=== PATIENT | female | born 1995 | race African-American/Black ===

== ENCOUNTER 2019-11-24 22:15 | Emergency (ER) | payer OTHER ==
[2019-11-25] MEDS ORDERED: Ketorolac INJ* 30 MG/ML 1 ML VIAL IM ONE (00:01)
[2019-11-25] MEDS ORDERED: oxyCODONE/Acetamin 5/325 MG* TAB PO ONE (00:15)
--- NOTE | 2019-11-25 00:17 | ED ---
Lower Extremity - HPI Summary HPI Summary: 24 year old female presents with left ankle pain today. She was playing basketball and when she plantar flexed her foot when she felt pain in her Achilles. She states that she felt a pop there. States that she felt immediate weakness. She states that she has not been able to walk normally and has only been able to place occasionally weight on her toes. She states she has history of Achilles tendinitis but this is much worse. She has no medical conditions. - History of Current Complaint Chief Complaint: EDExtremityLower Stated Complaint: L ANKLE PAIN PER PT Time Seen by Provider: 11/24/19 23:44 Pain Intensity: 8 - Allergies/Home Medications Allergies/Adverse Reactions: Allergies Allergy/AdvReac Type Severity Reaction Status Date / Time No Known Allergies Allergy Verified 11/24/19 22:19 Home Medications: Home Medications Norgestimate-Ethinyl Estradiol [Sprintec 28 Day Tablet] 1 tab PO DAILY 11/24/19 [History Confirmed 11/24/19] oxyCODONE/Acetamin 5/325 MG* [Percocet 5/325 TAB*] 1 tab PO Q6H PRN #8 tab MDD 4 11/25/19 [Rx] PMH/Surg Hx/FS Hx/Imm Hx Endocrine/Hematology History: Denies: Hx Anticoagulant Therapy Respiratory History: Denies: Hx Asthma Infectious Disease History: No Infectious Disease History: Denies: Traveled Outside the [place] in Last 30 Days - Family History Known Family History: Positive: Non-Contributory - Social History Alcohol Use: Occasionally Substance Use Type: Reports: Marijuana Substance Use Comment - Amount & Last Used: occassional Smoking Status (MU): Never Smoked Tobacco Review of Systems Negative: Fever Negative: Chest Pain Negative: Shortness Of Breath Positive: Myalgia - left ankle pain All Other Systems Reviewed And Are Negative: Yes Physical Exam Triage Information Reviewed: Yes Vital Signs On Initial Exam: Initial Vitals Temp Pulse Resp BP Pulse Ox 100.6 F 86 15 140/83 99 11/24/19 22:16 11/24/19 22:16 11/24/19 22:16 11/24/19 22:16 11/24/19 22:16 Vital Signs Reviewed: Yes Appearance: Positive: Well-Appearing Skin: Positive: Warm, Dry Head/Face: Positive: Normal Head/Face Inspection Eyes: Positive: Normal, Conjunctiva Clear ENT: Positive: Pharynx normal Respiratory/Lung Sounds: Positive: Clear to Auscultation, Breath Sounds Present Cardiovascular: Positive: Normal, RRR Musculoskeletal: Positive: Limited @ - left ankle, Other - tenderness over left achilles, pos hawk test, good pulses, sensation grossly intact Neurological: Positive: Normal Psychiatric: Positive: Normal Procedures - Sedation Patient Received Moderate/Deep Sedation with Procedure: No Diagnostics - Vital Signs Vital Signs Temp Pulse Resp BP Pulse Ox 11/24/19 22:16 100.6 F 86 15 140/83 99 - Laboratory Lab Statement: Any lab studies that have been ordered have been reviewed, and results considered in the medical decision making process. Lower Extremity Course/Dx - Course Course Of Treatment: 24 year old female presents with left ankle pain today. She was playing basketball and when she plantar flexed her foot when she felt pain in her Achilles. She states that she felt a pop there. States that she felt immediate weakness. She states that she has not been able to walk normally and has only been able to place occasionally weight on her toes. She states she has history of Achilles tendinitis but this is much worse. She has no medical conditions. On exam tenderness over Achilles. Neurovascular intact. pos hawk test. We'll treat as a Achilles tendon rupture. Place in plantar flex splint. Told to follow-up with orthopedic. Patient understands and agrees the plan. - Diagnoses Differential Diagnosis/HQI/PQRI: Positive: Fracture (Closed), Sprain, Other - achilles tear Provider Diagnoses: Achilles tendon rupture Discharge ED - Sign-Out/Discharge Documenting (check all that apply): Patient Departure - Discharge Plan Condition: Good Disposition: HOME Prescriptions: oxyCODONE/Acetamin 5/325 MG* [Percocet 5/325 TAB*] 1 tab PO Q6H PRN #8 tab MDD 4 PRN Reason: Pain - Severe Patient Education Materials: Achilles Tendon Rupture (ED) Referrals: [facility] - Marcelino [Primary Care Provider] - Alexandru Klein MD [Medical Doctor] - Additional Instructions: Use crutches and stay nonweight bearing Keep splint on area and keep dry Call ortho office tomorrow to set up appointment for follow up Use ibuprofen for pain every 6 hours and use norco for breakthrough pain every 6 hours Ice, elevate Return to ED if develop any new or worsening symptoms - Billing Disposition and Condition Condition: GOOD Disposition: Home
[2019-11-25 00:39] VITALS: BP 130/85
== END 2019-11-25 00:35 | disposition home or self-care (01) ==
LOC: ED 22:15
DX: S86.012A Strain of left Achilles tendon, initial encounter (principal); X50.9XXA Other and unspecified overexertion or strenuous movements or postures, initial encounter; Y93.67 Activity, basketball; Y92.9 Unspecified place or not applicable; Z79.3 Long term (current) use of hormonal contraceptives
CPT/HCPCS: 99281; A9270-GY; J1885